=== PATIENT | male | born 1970 | race Caucasian/White ===

== ENCOUNTER 2024-06-09 05:23 | Inpatient (IN) ==
[2024-06-09] MEDS: LEVOFLOXACIN 750 MG/150 ML BAG IV ONE (06:52)
[2024-06-09] MEDS: cefTRIAXone 2 GM in DEXTROSE 5% IN WATER 50 ML IV ONE (06:52)
[2024-06-09] MEDS ORDERED: PROPOFOL 200 MG/20 ML VIAL IV ONE (11:43)
[2024-06-09] MEDS ORDERED: KETAMINE 50 MG/ML Syringe IV ONE (11:43)
[2024-06-09] MEDS ORDERED: LIDOCAINE 2% PF 5 ML VIAL ONE (11:43)
[2024-06-09] MEDS ORDERED: DEXMEDETOMIDINE HCL 200 MCG/2 ML VIAL ONE (11:55)
[2024-06-09] MEDS ORDERED: HYDROmorphone 0.5 MG/0.5 ML SYRINGE ONE (12:03)
[2024-06-09] MEDS ORDERED: diphenhydrAMINE 50 MG/ML VIAL IV PRN (12:16)
[2024-06-09] MEDS ORDERED: IPRATROPIUM/ALBUTEROL 3 ML AMPUL.NEB NEB PRN ×2 (12:16→12:59)
[2024-06-09] MEDS ORDERED: HYDROmorphone 0.5 MG/0.5 ML SYRINGE IV PRN (12:16)
[2024-06-09] MEDS ORDERED: DROPERIDOL 5 MG/2 ML VIAL IV PRN (12:16)
[2024-06-09] MEDS ORDERED: fentaNYL 100 MCG/2 ML VIAL IV PRN (12:16)
[2024-06-09] MEDS ORDERED: NALOXONE HCL 0.4 MG/ML VIAL IV PRN (12:16)
[2024-06-09] MEDS ORDERED: oxyCODONE/APAP 5/325MG TABLET PO PRN (12:26)
[2024-06-09] MEDS ORDERED: ONDANSETRON 4 MG/2 ML VIAL IV PRN (12:26)
[2024-06-09] MEDS ORDERED: DEXTROSE 31 GM ORAL.SUSP PO PRN ×2 (12:59→13:01)
[2024-06-09] MEDS ORDERED: POTASSIUM CHLORIDE 40 MEQ in DEXTROSE 5% IN WATER 500 ML IV PRN (12:59)
[2024-06-09] MEDS ORDERED: MAGNESIUM SULFATE 2 GM/50 ML BAG IV PRN (12:59)
[2024-06-09] MEDS ORDERED: SENNOSIDES 1 TABLET PO PRN (12:59)
[2024-06-09] MEDS ORDERED: ACETAMINOPHEN 325 MG TABLET PO PRN (12:59)
[2024-06-09] MEDS ORDERED: DEXTROSE 50% 50 ML VIAL IV PRN ×2 (12:59→13:01)
[2024-06-09] MEDS ORDERED: POLYETHYLENE GLYCOL 3350 17 GM PACKET PO PRN (12:59)
[2024-06-09] MEDS ORDERED: POTASSIUM CHLORIDE 20 MEQ TABLET PO PRN ×2 (12:59)
[2024-06-09] MEDS: 0.9 % SODIUM CHLORIDE 1,000 ML IV SCH ×2 (13:07→14:12)
[2024-06-09] MEDS: VANCOMYCIN PER PHARMACY IV ONE (13:12)
[2024-06-09] MEDS: 0.9 % SODIUM CHLORIDE 10 ML SYRINGE IV SCH ×2 (13:31→14:12)
[2024-06-09] MEDS: HYDROmorphone 1 MG/ML SYRINGE IV PRN (13:31)
[2024-06-09 13:59] LABS: Amphetamine Screen,Urine Suspect positive; Barbiturate Screen,Urine None detected; Benzodiazepines Screen,Urine None detected; Cannabinoid Screen,Urine None detected; Cocaine Screen,Urine None detected; Fentanyl, Urine Screen Suspect Positive; Opiate Screen,Urine None detected; Oxycodone, Urine Screen None detected; Phencyclidine Screen,Urine None detected
[2024-06-09] MEDS ORDERED: VANCOMYCIN PER PHARMACY IV SCH (14:00)
[2024-06-09] MEDS: PIPERACILLIN SODIUM/TAZOBACTAM 4.5 GM in DEXTROSE 5% IN WATER 50 ML IV SCH (14:10)
[2024-06-09] MEDS: LACTATED RINGERS 1,000 ML IV SCH (14:12)
[2024-06-09] MEDS: PIPERACILLIN SODIUM/TAZOBACTAM 3.375 GM in DEXTROSE 5% IN WATER 100 ML IV SCH (15:06)
[2024-06-09] MEDS: LISINOPRIL 10 MG TABLET PO SCH (15:24)
[2024-06-09] MEDS: VANCOMYCIN 2,000 MG in 0.9 % SODIUM CHLORIDE 500 ML IV SCH (15:24)
[2024-06-09 15:25] LABS: Hemoglobin A1C 11.5 % Hgb (4.0-6.0)
[2024-06-09 16:36] LABS: Glomerular Filtration Rate 101
[2024-06-09] MEDS ORDERED: INSULIN LISPRO 1 UNIT/0.01 ML UNIT SQ SCH (17:00)
[2024-06-09] MEDS: oxyCODONE IR 5 MG TABLET PO PRN (17:19)
[2024-06-09] MEDS: INSULIN LISPRO 1 UNIT/0.01 ML UNIT SQ SCH ×2 (17:19→23:44)
[2024-06-09] MEDS: PIPERACILLIN SODIUM/TAZOBACTAM 4.5 GM in DEXTROSE 5% IN WATER 100 ML IV SCH (17:23)
[2024-06-09] MEDS: DOCUSATE SODIUM 100 MG CAPSULE PO SCH (21:32)
[2024-06-10] MEDS: INSULIN LISPRO 1 UNIT/0.01 ML UNIT SQ ONE ×2 (00:08→02:16)
[2024-06-10] MEDS: VANCOMYCIN 2,000 MG in 0.9 % SODIUM CHLORIDE 500 ML IV SCH (05:12)
[2024-06-10] MEDS ORDERED: VANCOMYCIN 1,750 MG in 0.9 % SODIUM CHLORIDE 500 ML IV SCH (06:00)
[2024-06-10 06:49] LABS: Basophils # (Auto) 0.05 K/mcL (0.00-0.30); Basophils % (Auto) 0.4 % (0.0-2.0); Eosinophils # (Auto) 0.06 K/mcL (0.00-0.70); Eosinophils % (Auto) 0.5 % (0.0-7.0); Hemoglobin 13.8 g/dL (13.7-17.5); Lymphocytes # (Auto) 1.26 K/mcL (1.50-4.80); Lymphocytes % (Auto) 9.6 % (15.5-49.0); Mean Cell Volume 87.1 fL (80.0-100.0); Mean Corpuscular HGB Conc 32.9 g/dL (31.0-36.0); Mean Platelet Volume 10.8 fL (8.8-12.5); Monocytes # (Auto) 1.17 K/mcL (0.10-0.90); Monocytes % (Auto) 8.9 % (1.0-12.0); Neutrophils % (Auto) 80.1 % (38.0-78.0); Platelet Count 404 K/mcL (140-440); RBC 4.82 M/mcL (4.63-6.08); Red Cell Distribution Width 12.7 % (11.5-14.5); WBC 13.1 K/mcL (4.5-11.0)
[2024-06-10 06:53] LABS: ALT/SGPT 27 U/L (<40); AST/SGOT 24 U/L (<40); Albumin 3.4 gm/dL (3.2-5.2); Alkaline Phosphatase 101 U/L (39-117); Bilirubin,Direct < 0.2 mg/dL (0-0.3); Bilirubin,Total 0.4 mg/dL (0.1-1.0); Blood Urea Nitrogen 17 mg/dL (6-20); Calcium 8.7 mg/dL (8.6-10.4); Carbon Dioxide 24 mmol/L (22-30); Chloride 102 mmol/L (96-108); Globulin 3.4 gm/dL (2.2-3.7); Glomerular Filtration Rate 101; Glucose 238 mg/dL (70-105); Lactate Dehydrogenase 168 U/L (135-225); Phosphorous 3.1 mg/dL (2.5-4.5); Potassium 4.2 mmol/L (3.3-5.1); Sodium 135 mmol/L (133-145); Triglycerides 74 mg/dL (<150); Uric Acid 2.6 mg/dL (2.5-8.0)
[2024-06-10] MEDS: LISINOPRIL 10 MG TABLET PO SCH (08:39)
[2024-06-10] MEDS: metFORMIN 500 MG TABLET PO SCH (10:51)
[2024-06-11] MEDS: ENALAPRILAT 1.25 MG/ML VIAL IV PRN (00:32)
[2024-06-11 06:18] LABS: Basophils # (Auto) 0.07 K/mcL (0.00-0.30); Basophils % (Auto) 0.6 % (0.0-2.0); Eosinophils # (Auto) 0.64 K/mcL (0.00-0.70); Eosinophils % (Auto) 5.8 % (0.0-7.0); Hematocrit 45.1 % (40.1-51.0); Hemoglobin 14.4 g/dL (13.7-17.5); Lymphocytes # (Auto) 2.19 K/mcL (1.50-4.80); Lymphocytes % (Auto) 19.9 % (15.5-49.0); Mean Cell Volume 89.5 fL (80.0-100.0); Mean Corpuscular HGB Conc 31.9 g/dL (31.0-36.0); Mean Platelet Volume 10.4 fL (8.8-12.5); Monocytes # (Auto) 1.08 K/mcL (0.10-0.90); Monocytes % (Auto) 9.8 % (1.0-12.0); Neutrophils % (Auto) 63.4 % (38.0-78.0); Platelet Count 343 K/mcL (140-440); RBC 5.04 M/mcL (4.63-6.08); Red Cell Distribution Width 12.8 % (11.5-14.5)
[2024-06-11 06:50] LABS: ALT/SGPT 28 U/L (<40); AST/SGOT 36 U/L (<40); Albumin 3.4 gm/dL (3.2-5.2); Alkaline Phosphatase 99 U/L (39-117); Bilirubin,Direct < 0.2 mg/dL (0-0.3); Bilirubin,Total 0.4 mg/dL (0.1-1.0); Blood Urea Nitrogen 18 mg/dL (6-20); Calcium 8.8 mg/dL (8.6-10.4); Carbon Dioxide 20 mmol/L (22-30); Chloride 102 mmol/L (96-108); Globulin 3.5 gm/dL (2.2-3.7); Glomerular Filtration Rate 96; Glucose 190 mg/dL (70-105); Lactate Dehydrogenase 237 U/L (135-225); Phosphorous 2.8 mg/dL (2.5-4.5); Potassium 4.2 mmol/L (3.3-5.1); Sodium 136 mmol/L (133-145); Triglycerides 91 mg/dL (<150); Uric Acid 2.9 mg/dL (2.5-8.0)
[2024-06-11] MEDS: LISINOPRIL 20 MG TABLET PO SCH (08:06)
[2024-06-11] MEDS: LISINOPRIL 20 MG TABLET PO ONE (08:10)
[2024-06-20 07:08] LABS: Amphetamine Screen Positive
== END 2024-06-11 14:15 | disposition home or self-care (01) | DRG 717 ==
LOC: ED 05:23 → SUR 11:33 → MEDSUR 12:55
PROVIDERS: ADMIT Urology; ATTEND Urology

== ENCOUNTER 2025-01-30 07:15 | Inpatient (IN) ==
[2025-01-30] MEDS: fentaNYL 100 MCG/2 ML VIAL IV ONE (08:19)
[2025-01-30] MEDS ORDERED: PROPOFOL 200 MG/20 ML VIAL IV ONE (08:47)
[2025-01-30] MEDS ORDERED: DEXAMETHASONE 10 MG/ML VIAL ONE (08:47)
[2025-01-30] MEDS ORDERED: DEXMEDETOMIDINE HCL 200 MCG/2 ML VIAL ONE (08:47)
[2025-01-30] MEDS ORDERED: GLYCOPYRROLATE 0.2 MG/ML VIAL IV ONE (08:47)
[2025-01-30] MEDS ORDERED: HYDROmorphone 0.5 MG/0.5 ML SYRINGE ONE (08:47)
[2025-01-30] MEDS ORDERED: ONDANSETRON 4 MG/2 ML VIAL ONE (08:47)
[2025-01-30] MEDS ORDERED: FAMOTIDINE/PF 20 MG/2 ML VIAL IV ONE (08:47)
[2025-01-30] MEDS ORDERED: KETAMINE 50 MG/ML Syringe IV ONE (08:47)
[2025-01-30] MEDS ORDERED: ePHEDrine 50 MG/5 ML SYRINGE (ANEST) IV ONE (08:59)
[2025-01-30] MEDS ORDERED: ONDANSETRON 4 MG/2 ML VIAL IV PRN ×2 (10:21→11:10)
[2025-01-30] MEDS ORDERED: IPRATROPIUM/ALBUTEROL 3 ML AMPUL.NEB NEB PRN ×2 (10:21→11:10)
[2025-01-30] MEDS ORDERED: fentaNYL 100 MCG/2 ML VIAL IV PRN (10:21)
[2025-01-30] MEDS ORDERED: BENZOCAINE/MENTHOL 1 LOZENGE PO PRN (10:21)
[2025-01-30] MEDS ORDERED: fentaNYL 100 MCG/2 ML VIAL ONE (10:27)
[2025-01-30] MEDS ORDERED: VANCOMYCIN PER PHARMACY IV SCH (11:10)
[2025-01-30] MEDS ORDERED: POLYETHYLENE GLYCOL 3350 17 GM PACKET PO PRN (11:10)
[2025-01-30] MEDS ORDERED: POTASSIUM CHLORIDE 40 MEQ in DEXTROSE 5% IN WATER 500 ML IV PRN (11:10)
[2025-01-30] MEDS ORDERED: DEXTROSE 50% 50 ML VIAL IV PRN (11:10)
[2025-01-30] MEDS ORDERED: METOCLOPRAMIDE 10 MG/2 ML VIAL IV PRN (11:10)
[2025-01-30] MEDS ORDERED: ACETAMINOPHEN 325 MG TABLET PO PRN (11:10)
[2025-01-30] MEDS ORDERED: DEXTROSE 31 GM ORAL.SUSP PO PRN (11:10)
[2025-01-30] MEDS ORDERED: MAGNESIUM SULFATE 2 GM/50 ML BAG IV PRN (11:10)
[2025-01-30] MEDS ORDERED: SENNOSIDES 1 TABLET PO PRN (11:10)
[2025-01-30] MEDS ORDERED: POTASSIUM CHLORIDE 20 MEQ TABLET PO PRN ×2 (11:10)
[2025-01-30] MEDS: HEPARIN 5,000 UNIT/ML VIAL SQ SCH (11:40)
[2025-01-30] MEDS: 0.9 % SODIUM CHLORIDE 1,000 ML IV ONE (11:40)
[2025-01-30] MEDS: HYDROmorphone 0.5 MG/0.5 ML SYRINGE IV PRN (11:41)
[2025-01-30] MEDS: DOCUSATE SODIUM 100 MG CAPSULE PO SCH (11:42)
[2025-01-30] MEDS: INSULIN LISPRO 1 UNIT/0.01 ML UNIT SQ SCH (11:54)
[2025-01-30] MEDS: PIPERACILLIN SODIUM/TAZOBACTAM 4.5 GM in DEXTROSE 5% IN WATER 50 ML IV ONE (11:57)
[2025-01-30] MEDS ORDERED: PIPERACILLIN SODIUM/TAZOBACTAM 3.375 GM in DEXTROSE 5% IN WATER 100 ML IV SCH (13:00)
[2025-01-30] MEDS: VANCOMYCIN 1,500 MG in 0.9 % SODIUM CHLORIDE 500 ML IV SCH (13:05)
[2025-01-30] MEDS: BUPIVACAINE W/EPI 0.5% 50 ML VIAL IJ ONE (14:17)
[2025-01-30] MEDS: 0.9 % SODIUM CHLORIDE 10 ML SYRINGE IV SCH (16:35)
[2025-01-30] MEDS: PIPERACILLIN SODIUM/TAZOBACTAM 4.5 GM in DEXTROSE 5% IN WATER 100 ML IV SCH (16:38)
[2025-01-30] MEDS: ENALAPRILAT 1.25 MG/ML VIAL IV PRN (18:11)
[2025-01-30] MEDS: LACTATED RINGERS 1,000 ML IV SCH (19:06)
[2025-01-31 06:32] LABS: Basophils # (Auto) 0.01 K/mcL (0.00-0.30); Basophils % (Auto) 0.1 % (0.0-2.0); Eosinophils # (Auto) 0.01 K/mcL (0.00-0.70); Eosinophils % (Auto) 0.1 % (0.0-7.0); Hematocrit 40.1 % (40.1-51.0); Hemoglobin 12.9 g/dL (13.7-17.5); Lymphocytes % (Auto) 8.6 % (15.5-49.0); Mean Cell Volume 86.6 fL (80.0-100.0); Mean Corpuscular HGB Conc 32.2 g/dL (31.0-36.0); Mean Platelet Volume 10.8 fL (8.8-12.5); Monocytes # (Auto) 0.78 K/mcL (0.10-0.90); Monocytes % (Auto) 7.4 % (1.0-12.0); Neutrophils % (Auto) 83.6 % (38.0-78.0); Platelet Count 353 K/mcL (140-440); RBC 4.63 M/mcL (4.63-6.08); Red Cell Distribution Width 12.8 % (11.5-14.5); WBC 10.5 K/mcL (4.5-11.0)
[2025-01-31 07:03] LABS: ALT/SGPT 31 U/L (<40); AST/SGOT 21 U/L (<40); Albumin/Globulin Ratio 0.9 (1.0-2.3); Alkaline Phosphatase 86 U/L (39-117); Bilirubin,Direct 0.2 mg/dL (<0.3); Bilirubin,Total 0.4 mg/dL (0.1-1.0); Blood Urea Nitrogen 14 mg/dL (6-20); Calcium 8.7 mg/dL (8.6-10.4); Carbon Dioxide 21 mmol/L (22-30); Chloride 104 mmol/L (96-108); Globulin 3.2 gm/dL (2.2-3.7); Glomerular Filtration Rate 101; Glucose 277 mg/dL (70-105); Lactate Dehydrogenase 113 U/L (135-225); Potassium 4.2 mmol/L (3.3-5.1); Sodium 135 mmol/L (133-145); Triglycerides 76 mg/dL (<150); Uric Acid 2.8 mg/dL (2.5-8.0)
[2025-01-31] MEDS: HYDROmorphone 0.5 MG/0.5 ML SYRINGE IV ONE (07:06)
[2025-01-31 14:23] LABS: Amphetamine Screen,Urine Suspect positive; Barbiturate Screen,Urine None detected; Benzodiazepines Screen,Urine Suspect positive; Cannabinoid Screen,Urine None detected; Cocaine Screen,Urine None detected; Fentanyl, Urine Screen Suspect Positive; Opiate Screen,Urine None detected; Oxycodone, Urine Screen None detected; Phencyclidine Screen,Urine None detected
[2025-02-01 08:46] LABS: Basophils # (Auto) 0.05 K/mcL (0.00-0.30); Basophils % (Auto) 0.6 % (0.0-2.0); Eosinophils # (Auto) 0.28 K/mcL (0.00-0.70); Eosinophils % (Auto) 3.5 % (0.0-7.0); Hematocrit 46.3 % (40.1-51.0); Hemoglobin 13.4 g/dL (13.7-17.5); Lymphocytes # (Auto) 1.77 K/mcL (1.50-4.80); Mean Cell Volume 95.7 fL (80.0-100.0); Mean Corpuscular HGB Conc 28.9 g/dL (31.0-36.0); Monocytes % (Auto) 9.9 % (1.0-12.0); Neutrophils % (Auto) 63.9 % (38.0-78.0); Platelet Count 322 K/mcL (140-440); RBC 4.84 M/mcL (4.63-6.08); Red Cell Distribution Width 12.8 % (11.5-14.5); WBC 8.1 K/mcL (4.5-11.0)
[2025-02-01 08:52] LABS: ALT/SGPT 31 U/L (<40); AST/SGOT 25 U/L (<40); Albumin 3.1 gm/dL (3.2-5.2); Albumin/Globulin Ratio 0.9 (1.0-2.3); Alkaline Phosphatase 85 U/L (39-117); Bilirubin,Direct 0.3 mg/dL (<0.3); Bilirubin,Total 0.5 mg/dL (0.1-1.0); Blood Urea Nitrogen 14 mg/dL (6-20); Calcium 8.8 mg/dL (8.6-10.4); Carbon Dioxide 21 mmol/L (22-30); Chloride 101 mmol/L (96-108); Globulin 3.3 gm/dL (2.2-3.7); Glomerular Filtration Rate 96; Glucose 191 mg/dL (70-105); Lactate Dehydrogenase 134 U/L (135-225); Phosphorous 2.8 mg/dL (2.5-4.5); Potassium 3.7 mmol/L (3.3-5.1); Sodium 135 mmol/L (133-145); Triglycerides 119 mg/dL (<150); Uric Acid 2.7 mg/dL (2.5-8.0)
[2025-02-01 09:19] LABS: C-Reactive Protein 1.35 mg/dL (0.03-0.80)
[2025-02-02 07:48] LABS: Basophils # (Auto) 0.05 K/mcL (0.00-0.30); Basophils % (Auto) 0.5 % (0.0-2.0); Eosinophils # (Auto) 0.36 K/mcL (0.00-0.70); Eosinophils % (Auto) 3.4 % (0.0-7.0); Hematocrit 43.9 % (40.1-51.0); Hemoglobin 14.7 g/dL (13.7-17.5); Lymphocytes # (Auto) 1.29 K/mcL (1.50-4.80); Lymphocytes % (Auto) 12.3 % (15.5-49.0); Mean Cell Volume 83.9 fL (80.0-100.0); Mean Corpuscular HGB Conc 33.5 g/dL (31.0-36.0); Mean Platelet Volume 10.5 fL (8.8-12.5); Monocytes # (Auto) 1.07 K/mcL (0.10-0.90); Monocytes % (Auto) 10.2 % (1.0-12.0); Neutrophils % (Auto) 73.4 % (38.0-78.0); Platelet Count 377 K/mcL (140-440); RBC 5.23 M/mcL (4.63-6.08); Red Cell Distribution Width 12.6 % (11.5-14.5); WBC 10.5 K/mcL (4.5-11.0)
[2025-02-02 08:02] LABS: ALT/SGPT 41 U/L (<40); AST/SGOT 33 U/L (<40); Albumin 3.4 gm/dL (3.2-5.2); Alkaline Phosphatase 91 U/L (39-117); Bilirubin,Direct 0.4 mg/dL (<0.3); Bilirubin,Total 0.7 mg/dL (0.1-1.0); Blood Urea Nitrogen 15 mg/dL (6-20); Carbon Dioxide 21 mmol/L (22-30); Chloride 102 mmol/L (96-108); Globulin 3.4 gm/dL (2.2-3.7); Glomerular Filtration Rate 96; Glucose 222 mg/dL (70-105); Lactate Dehydrogenase 139 U/L (135-225); Phosphorous 3.1 mg/dL (2.5-4.5); Potassium 3.7 mmol/L (3.3-5.1); Sodium 136 mmol/L (133-145); Triglycerides 100 mg/dL (<150); Uric Acid 2.8 mg/dL (2.5-8.0)
[2025-02-02] MEDS: INSULIN GLARGINE, HUMAN 1 UNIT/0.01 ML SQ SCH (20:58)
[2025-02-03 06:48] LABS: Basophils # (Auto) 0.06 K/mcL (0.00-0.30); Basophils % (Auto) 0.5 % (0.0-2.0); Eosinophils # (Auto) 0.62 K/mcL (0.00-0.70); Eosinophils % (Auto) 4.8 % (0.0-7.0); Hematocrit 44.1 % (40.1-51.0); Hemoglobin 14.6 g/dL (13.7-17.5); Lymphocytes # (Auto) 1.67 K/mcL (1.50-4.80); Lymphocytes % (Auto) 12.9 % (15.5-49.0); Mean Cell Volume 84.2 fL (80.0-100.0); Mean Corpuscular HGB Conc 33.1 g/dL (31.0-36.0); Mean Platelet Volume 10.3 fL (8.8-12.5); Monocytes # (Auto) 1.44 K/mcL (0.10-0.90); Monocytes % (Auto) 11.2 % (1.0-12.0); Neutrophils % (Auto) 70.1 % (38.0-78.0); Platelet Count 372 K/mcL (140-440); RBC 5.24 M/mcL (4.63-6.08); WBC 12.9 K/mcL (4.5-11.0)
[2025-02-03 07:37] LABS: ALT/SGPT 47 U/L (<40); AST/SGOT 38 U/L (<40); Albumin 3.3 gm/dL (3.2-5.2); Albumin/Globulin Ratio 1.1 (1.0-2.3); Alkaline Phosphatase 88 U/L (39-117); Bilirubin,Direct 0.4 mg/dL (<0.3); Bilirubin,Total 0.7 mg/dL (0.1-1.0); Blood Urea Nitrogen 23 mg/dL (6-20); Calcium 9.1 mg/dL (8.6-10.4); Carbon Dioxide 20 mmol/L (22-30); Chloride 100 mmol/L (96-108); Globulin 3.1 gm/dL (2.2-3.7); Glomerular Filtration Rate 48; Glucose 201 mg/dL (70-105); Lactate Dehydrogenase 144 U/L (135-225); Phosphorous 5.1 mg/dL (2.5-4.5); Potassium 3.5 mmol/L (3.3-5.1); Sodium 134 mmol/L (133-145); Triglycerides 98 mg/dL (<150); Uric Acid 4.4 mg/dL (2.5-8.0)
[2025-02-03] MEDS: LACTATED RINGERS 1,000 ML IV SCH (15:27)
[2025-02-04 06:51] LABS: Basophils # (Auto) 0.06 K/mcL (0.00-0.30); Basophils % (Auto) 0.6 % (0.0-2.0); Eosinophils # (Auto) 0.69 K/mcL (0.00-0.70); Eosinophils % (Auto) 6.7 % (0.0-7.0); Hematocrit 44.2 % (40.1-51.0); Hemoglobin 13.7 g/dL (13.7-17.5); Lymphocytes # (Auto) 2.01 K/mcL (1.50-4.80); Lymphocytes % (Auto) 19.6 % (15.5-49.0); Mean Cell Volume 89.7 fL (80.0-100.0); Mean Platelet Volume 10.7 fL (8.8-12.5); Monocytes # (Auto) 1.13 K/mcL (0.10-0.90); Neutrophils % (Auto) 61.7 % (38.0-78.0); Platelet Count 357 K/mcL (140-440); RBC 4.93 M/mcL (4.63-6.08); WBC 10.3 K/mcL (4.5-11.0)
[2025-02-04 07:13] LABS: ALT/SGPT 42 U/L (<40); AST/SGOT 32 U/L (<40); Albumin/Globulin Ratio 0.9 (1.0-2.3); Alkaline Phosphatase 79 U/L (39-117); Bilirubin,Direct 0.2 mg/dL (<0.3); Bilirubin,Total 0.5 mg/dL (0.1-1.0); Blood Urea Nitrogen 23 mg/dL (6-20); Calcium 9.1 mg/dL (8.6-10.4); Carbon Dioxide 20 mmol/L (22-30); Chloride 104 mmol/L (96-108); Globulin 3.2 gm/dL (2.2-3.7); Glomerular Filtration Rate 61; Glucose 200 mg/dL (70-105); Lactate Dehydrogenase 160 U/L (135-225); Phosphorous 3.1 mg/dL (2.5-4.5); Potassium 3.9 mmol/L (3.3-5.1); Sodium 134 mmol/L (133-145); Triglycerides 88 mg/dL (<150); Uric Acid 3.8 mg/dL (2.5-8.0)
[2025-02-04] MEDS: LACTATED RINGERS 1,000 ML IV SCH (11:33)
[2025-02-05 06:44] LABS: Basophils # (Auto) 0.06 K/mcL (0.00-0.30); Basophils % (Auto) 0.6 % (0.0-2.0); Eosinophils # (Auto) 0.59 K/mcL (0.00-0.70); Eosinophils % (Auto) 6.2 % (0.0-7.0); Hematocrit 41.7 % (40.1-51.0); Hemoglobin 13.5 g/dL (13.7-17.5); Lymphocytes # (Auto) 2.47 K/mcL (1.50-4.80); Mean Cell Volume 85.5 fL (80.0-100.0); Mean Corpuscular HGB Conc 32.4 g/dL (31.0-36.0); Mean Platelet Volume 10.7 fL (8.8-12.5); Monocytes # (Auto) 1.01 K/mcL (0.10-0.90); Monocytes % (Auto) 10.6 % (1.0-12.0); Neutrophils % (Auto) 56.2 % (38.0-78.0); Platelet Count 353 K/mcL (140-440); RBC 4.88 M/mcL (4.63-6.08); WBC 9.5 K/mcL (4.5-11.0)
[2025-02-05 07:19] LABS: ALT/SGPT 41 U/L (<40); AST/SGOT 29 U/L (<40); Albumin 3.2 gm/dL (3.2-5.2); Albumin/Globulin Ratio 1.1 (1.0-2.3); Alkaline Phosphatase 71 U/L (39-117); Bilirubin,Direct 0.2 mg/dL (<0.3); Bilirubin,Total 0.4 mg/dL (0.1-1.0); Blood Urea Nitrogen 19 mg/dL (6-20); Calcium 8.9 mg/dL (8.6-10.4); Carbon Dioxide 22 mmol/L (22-30); Chloride 103 mmol/L (96-108); Glomerular Filtration Rate 68; Glucose 156 mg/dL (70-105); Lactate Dehydrogenase 140 U/L (135-225); Phosphorous 2.9 mg/dL (2.5-4.5); Potassium 3.6 mmol/L (3.3-5.1); Sodium 135 mmol/L (133-145); Triglycerides 94 mg/dL (<150); Uric Acid 3.3 mg/dL (2.5-8.0)
[2025-02-05 07:24] LABS: C-Reactive Protein 1.06 mg/dL (0.03-0.80)
[2025-02-05] MEDS: AMPICILLIN SODIUM/SULBACTAM NA 3 GM in 0.9 % SODIUM CHLORIDE 100 ML IV SCH (13:37)
[2025-02-06 06:23] LABS: Basophils # (Auto) 0.06 K/mcL (0.00-0.30); Basophils % (Auto) 0.6 % (0.0-2.0); Eosinophils # (Auto) 0.53 K/mcL (0.00-0.70); Eosinophils % (Auto) 5.7 % (0.0-7.0); Hematocrit 41.8 % (40.1-51.0); Hemoglobin 13.7 g/dL (13.7-17.5); Lymphocytes # (Auto) 2.41 K/mcL (1.50-4.80); Lymphocytes % (Auto) 26.1 % (15.5-49.0); Mean Cell Volume 85.1 fL (80.0-100.0); Mean Corpuscular HGB Conc 32.8 g/dL (31.0-36.0); Mean Platelet Volume 11.2 fL (8.8-12.5); Monocytes # (Auto) 0.91 K/mcL (0.10-0.90); Monocytes % (Auto) 9.8 % (1.0-12.0); Neutrophils % (Auto) 57.5 % (38.0-78.0); Platelet Count 390 K/mcL (140-440); RBC 4.91 M/mcL (4.63-6.08); Red Cell Distribution Width 12.9 % (11.5-14.5); WBC 9.3 K/mcL (4.5-11.0)
[2025-02-06 06:53] LABS: ALT/SGPT 43 U/L (<40); AST/SGOT 31 U/L (<40); Albumin 3.4 gm/dL (3.2-5.2); Albumin/Globulin Ratio 1.3 (1.0-2.3); Alkaline Phosphatase 73 U/L (39-117); Bilirubin,Direct < 0.2 mg/dL (0-0.3); Bilirubin,Total 0.4 mg/dL (0.1-1.0); Blood Urea Nitrogen 15 mg/dL (6-20); Calcium 9.4 mg/dL (8.6-10.4); Carbon Dioxide 22 mmol/L (22-30); Chloride 104 mmol/L (96-108); Globulin 2.7 gm/dL (2.2-3.7); Glomerular Filtration Rate 96; Glucose 150 mg/dL (70-105); Lactate Dehydrogenase 147 U/L (135-225); Phosphorous 3.5 mg/dL (2.5-4.5); Potassium 3.7 mmol/L (3.3-5.1); Sodium 138 mmol/L (133-145); Triglycerides 96 mg/dL (<150); Uric Acid 3.4 mg/dL (2.5-8.0)
[2025-02-07 08:45] VITALS: TEMP 98.9; O2SAT 99
[2025-02-09 02:08] LABS: Amphetamine Screen Positive
== END 2025-02-07 12:14 | DRG 727 ==
LOC: ED 07:15 → SUR 09:28 → MEDSUR 11:06
PROVIDERS: ADMIT Internal Medicine; ATTEND Internal Medicine